=== PATIENT | female | born 1970 | race Caucasian/White ===

== ENCOUNTER 2023-03-09 09:43 | Emergency (ER) | payer OTHER ==
[2023-03-09 10:40] LABS: #Eosinphils 0.1 10x3/uL (0.0-0.5); #Monocytes 0.3 10x3/uL (0.0-1.1); #Neutrophils 3.6 10x3/uL (1.5-8.4); %Basophils 0.4 % (0.0-2.0); %Eosinophils 2.2 % (0.0-6.0); %Lymphocytes 9.4 % (18.0-47.0); %Monocytes 6.7 % (0.0-10.0); %Neutrophils 80.9 % (40.0-75.0); Hematocrit 39.7 % (34.9-44.5); Hemoglobin 13.1 g/dL (12.0-15.5); Mean Corpuscular Hemoglobin 27.8 pg (27.0-33.0); Mean Corpuscular Volume 84.3 fl (81.6-98.3); Mean Platelet Volume 10.5 fl (7.4-10.4); Platelet Count 245 10x3/uL (150-450); RBC Distribution Width 12.8 % (11.5-14.5); Red Blood Cell (RBC) Count 4.71 10x6/uL (3.90-5.03); White Blood Cell (WBC) Count 4.5 10x3/uL (3.5-10.5)
[2023-03-09] MEDS ORDERED: diphenhydrAMINE 50 MG/ML VIAL ONE (10:47)
[2023-03-09] MEDS ORDERED: Famotidine/PF 20 mg/2ml Vial ONE (10:48)
[2023-03-09] MEDS ORDERED: Dexamethasone 10 MG/ML VIAL ONE (10:48)
[2023-03-09 10:49] LABS: ALT (SGPT) 17 U/L (8-55); AST (SGOT) 11 U/L (5-34); Alkaline Phosphatase 83 U/L (40-110); Anion Gap 11 mmol/L (10-20); BUN (Urea Nitrogen) 8 mg/dL (7.0-18.7); Bilirubin, Total 0.6 mg/dL (0.2-1.2); Calc. Creatinine Clearance 0 mL/min (70-130); Calcium 8.4 mg/dL (7.8-10.44); Carbon Dioxide 26 mmol/L (22-29); Chloride 103 mmol/L (98-107); Estimated GFR 102; Globulin 2.7 g/dL (2.4-3.5); Glucose 99 mg/dL (70-105); Protein, Total 6.7 g/dL (6.0-8.3); Sodium 136 mmol/L (136-145)
[2023-03-09 10:54] LABS: Troponin I Less than 0.010 ng/mL (< 0.028)
[2023-03-09 11:11] LABS: SARS-CoV-2 NAA Rapid Test Not Detected (NotDetected)
[2023-03-09] MEDS ORDERED: Ketorolac Tromethamine 30 MG (1 mL) VIAL ONE (13:02)
== END 2023-03-09 15:57 | disposition home or self-care (01) ==
LOC: CSHERS 09:43
DX: K12.2 Cellulitis and abscess of mouth (principal); J20.9 Acute bronchitis, unspecified
CPT/HCPCS: 70360; 71045; 80053; 84484; 85025; 93005; 96374; 96375; J1100; J1200; J1885; S0028